=== PATIENT | female | born 1965 | race Caucasian/White ===

== ENCOUNTER 2017-02-07 22:16 | Emergency (ER) | payer OTHER ==
[~2017-02-07] VITALS: Ht 162.6 cm; Wt 68.9 kg
[2017-02-07 22:23] VITALS: Ht 162.6 cm; Wt 68.9 kg
[2017-02-08 00:07] VITALS: BP 144/87
== END 2017-02-08 00:07 | disposition home or self-care (01) ==
LOC: ED 22:16
DX: S50.11XA Contusion of right forearm, initial encounter (principal); S80.01XA Contusion of right knee, initial encounter; J45.909 Unspecified asthma, uncomplicated; V49.9XXA Car occupant (driver) (passenger) injured in unspecified traffic accident, initial encounter; Y93.89 Activity, other specified; Y99.8 Other external cause status; Y92.89 Other specified places as the place of occurrence of the external cause

== ENCOUNTER 2020-03-13 05:21 | Emergency (ER) | payer MEDICAID ==
[~2020-03-13] VITALS: Ht 160 cm; Wt 68.0 kg
[2020-03-13 05:28] VITALS: Ht 160 cm; Wt 68.0 kg
[2020-03-13 06:01] VITALS: BP 128/92
== END 2020-03-13 06:02 | disposition home or self-care (01) ==
LOC: ED 05:21
DX: H10.33 Unspecified acute conjunctivitis, bilateral (principal); J45.909 Unspecified asthma, uncomplicated; E78.00 Pure hypercholesterolemia, unspecified